=== PATIENT | male | born 1990 | race African-American/Black ===

== ENCOUNTER 2024-01-26 07:30 | Emergency (ER) | payer MEDICAID ==
[~2024-01-26] VITALS: Ht 167.6 cm; Wt 59.0 kg
[2024-01-26 07:36] VITALS: BP 145/87; PULSE 107; RESP 18; TEMP 98.5; O2SAT 100
[2024-01-26 08:32] LABS: BASOPHILS % 0.6 % (0.0-2.0); EOSINOPHILS % 1.2 % (0.0-5.0); HEMATOCRIT. 47.3 % (42.0-52.0); HEMOGLOBIN. 15.7 g/dL (14.0-18.0); MEAN CORPUSCULAR HEMOGLOBIN 27.5 pg (28.0-32.0); MEAN CORPUSCULAR HGB CONC 33.2 g/dL (31.0-37.0); MEAN PLATELET VOLUME 8.4 fl (7.4-10.4); MONOCYTES % 7.9 % (2.0-8.0); NEUTROPHILS % 76.3 % (40.0-76.0); PLATELET 340 x1000/uL (130-400); WHITE BLOOD COUNT 13.5 x1000/uL (4.5-11.0)
[2024-01-26 08:43] LABS: CHLORIDE 101 mEq/L (98-107); SODIUM 138 mEq/L (136-145)
[2024-01-26 08:44] LABS: CALCIUM 10.6 mg/dL (8.7-10.4); CARBON DIOXIDE 31 mEq/L (21-32)
[2024-01-26] MEDS: IBUPROFEN 800MG TABLET PO ONE (08:48)
[2024-01-26 08:49] LABS: GLUCOSE 105 mg/dL (70-105); UREA NITROGEN BLOOD 10 mg/dL (9-23)
[2024-01-26] MEDS: IBUPROFEN 800MG TABLET PO NR (08:49)
[2024-01-26 09:41] LABS: CLARITY URINE TURBID (CLEAR); COLOR URINE DARK YELLOW (YELLOW); GLUCOSE URINE NEGATIVE (NEGATIVE); KETONES URINE NEGATIVE (NEGATIVE); LEUKOCYTE ESTERASE URINE 3+ (NEGATIVE); NITRITE URINE NEGATIVE (NEGATIVE); OCCULT BLOOD URINE 1+ (NEGATIVE); PH URINE 6.5 (4.5-8.0); PROTEIN URINE 1+ (NEGATIVE)
[2024-01-26] MEDS ORDERED: IBUP-2030 PO (09:47)
[2024-01-26] MEDS ORDERED: LEVO-65 PO (09:47)
[2024-01-26 09:56] LABS: WBC URINE TNTC /hpf (0-2)
[2024-01-26 09:57] LABS: BACTERIA URINE 3+; RBC URINE 0-2 /hpf (0-2); SQUAMOUS EPITHELIAL CELL URINE RARE /lpf (RARE/1+); YEAST URINE NONE SEEN
[2024-01-26] MEDS: CEFTRIAXONE SODIUM 500MG VIAL IM ONE (10:00)
== END 2024-01-26 10:07 | disposition home or self-care (01) ==
LOC: ER 07:30
DX: N45.2 Orchitis (principal)
CPT/HCPCS: 80048; 81003; 85025; 87086; 87186; 87077; 36415; 93976; 76870; 96372; 99285; J0696; Z7610